=== PATIENT | male | born 1970 | race African-American/Black ===

== ENCOUNTER 2022-02-17 00:27 | Emergency (ER) | payer MEDICAID ==
[~2022-02-17] VITALS: Ht 177.8 cm; Wt 95.0 kg
[2022-02-17 00:29] VITALS: BP 159/96
[2022-02-17 03:01] LABS: BASOPHILS % 0.3 % (0.0-2.0); EOSINOPHILS % 0.6 % (0.0-5.0); HEMATOCRIT. 43.2 % (42.0-52.0); HEMOGLOBIN. 14.4 g/dL (14.0-18.0); MEAN CORPUSCULAR HEMOGLOBIN 27.7 pg (28.0-32.0); MEAN PLATELET VOLUME 8.3 fl (7.4-10.4); MONOCYTES % 8.2 % (2.0-8.0); NEUTROPHILS % 78.9 % (40.0-76.0); PLATELET 166 x1000/uL (130-400); RED CELL DISTRIBUTION WIDTH 14.4 % (11.6-14.6)
[2022-02-17 03:08] LABS: CHLORIDE 99 mEq/L (98-107)
[2022-02-17 03:30] LABS: ETHANOL BLOOD < 10 mg/dL
[2022-02-17] MEDS ORDERED: IBUPROFEN 600MG TABLET PO ONE ×2 (04:45→06:30)
== END 2022-02-17 11:26 | disposition home or self-care (01) ==
LOC: ER 00:41
DX: R07.89 Other chest pain (principal); R03.0 Elevated blood-pressure reading, without diagnosis of hypertension
CPT/HCPCS: 36415; 71045; 72170; 73551; 80053; 80320; 84484; 85025; 93005; 99285; G0480